=== PATIENT | female | born 1955 | race Caucasian/White ===

== ENCOUNTER → 2023-10-09 07:34 | Outpatient (REF) | payer MEDICARE, SELFPAY | LOC: MRI 3T 07:34 | PROVIDERS: ATTENDING PHYSICIAN Internal Medicine Geriatric Medicine | DX: E03.9 Hypothyroidism, unspecified (principal); M17.0 Bilateral primary osteoarthritis of knee; E06.3 Autoimmune thyroiditis; M47.812 Spondylosis without myelopathy or radiculopathy, cervical region; R06.02 Shortness of breath; G62.9 Polyneuropathy, unspecified | CPT/HCPCS: 70551 ==

== ENCOUNTER → 2023-10-11 06:43 | Outpatient (REF) | payer MEDICARE, SELFPAY ==
[2023-10-11] MEDS: LEXISCAN 0.400000000000000022 MG IV (08:29)
== END ==
LOC: RCS 06:43
PROVIDERS: ATTENDING PHYSICIAN Internal Medicine Geriatric Medicine
DX: R55 Syncope and collapse (principal); Z00.00 Encounter for general adult medical examination without abnormal findings; K21.9 Gastro-esophageal reflux disease without esophagitis; E78.2 Mixed hyperlipidemia; E03.9 Hypothyroidism, unspecified; M17.0 Bilateral primary osteoarthritis of knee; E06.3 Autoimmune thyroiditis; M47.812 Spondylosis without myelopathy or radiculopathy, cervical region; R06.02 Shortness of breath; S72.33 Oblique fracture of shaft of femur; G52.9 Cranial nerve disorder, unspecified; M81.0 Age-related osteoporosis without current pathological fracture; Z13.89 Encounter for screening for other disorder; H81.09 Meniere's disease, unspecified ear; R53.83 Other fatigue; M47.816 Spondylosis without myelopathy or radiculopathy, lumbar region; Z12.11 Encounter for screening for malignant neoplasm of colon
CPT/HCPCS: 78452; 93017; A9500; J2785

== ENCOUNTER → 2023-10-22 08:58 | Outpatient (REF) | payer MEDICARE, SELFPAY | LOC: RCS 08:58 | PROVIDERS: ATTENDING PHYSICIAN Internal Medicine Geriatric Medicine | DX: R55 Syncope and collapse (principal); R06.02 Shortness of breath; E78.2 Mixed hyperlipidemia; K21.9 Gastro-esophageal reflux disease without esophagitis; E03.9 Hypothyroidism, unspecified; M17.0 Bilateral primary osteoarthritis of knee; E06.3 Autoimmune thyroiditis; G62.9 Polyneuropathy, unspecified; H81.09 Meniere's disease, unspecified ear; R53.83 Other fatigue; R07.89 Other chest pain; Z87.898 Personal history of other specified conditions | CPT/HCPCS: 93225; 93226; 93306 ==

== ENCOUNTER → 2023-10-25 08:25 | Outpatient (REF) | payer MEDICARE, SELFPAY | LOC: HWRAD 08:25 | PROVIDERS: ATTENDING PHYSICIAN Internal Medicine Endocrinology, Diabetes & Metabolism; FAMILY PHYSICIAN Internal Medicine Geriatric Medicine | DX: E04.9 Nontoxic goiter, unspecified (principal) | CPT/HCPCS: 76536 ==

== ENCOUNTER 2023-11-29 07:57 | Day surgery (SDC) | payer MEDICARE, SELFPAY ==
[2023-11-29] VITALS (9 sets, daily range): BP systolic 128–142; BP diastolic 80–91; BMI 40.7
[2023-11-29] MEDS: LOW STRENGTH ASPIRIN 324 MG PO (08:53)
[2023-11-29] MEDS: NSS 1000 IV (09:02)
[2023-11-29 11:25] LABS: ACT-LR - POC 245 Seconds (116-155)
--- NOTE | 2023-11-29 11:42 | ITS.CL.CATH ---
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
Cardiac Catheterization
Procedure Report:
LEFT HEART CATHETERIZATION
Date of Procedure: November 29, 2023
Referring: Dr. Boom Rivas
PROCEDURES:
1. Left heart catheterization with coronary and single-plane left ventriculography
INDICATION: Unexplained sudden syncope with TID noted on stress testing with normal perfusion
ACCESS: Right radial artery, 5 [place] sheath right common femoral artery, 5 [place] sheath due to inability to pass catheters from the right subclavian to the aorta
HEMODYNAMICS : (mmHg)
AO (s/d) : 123/75, 89
LV (s/d) : 141/15
LVEDP : 25
CORONARY FINDINGS
DOMINANCE: Right
LEFT MAIN: Normal
LEFT ANTERIOR DESCENDING: The LAD arises normally from the left main and runs in the anterior interventricular groove. The LAD gives rise to a large bifurcating diagonal branch. The mid LAD beyond the first diagonal branch tapers to a small
caliber vessel and approaches but does not reach the apex terminating in a small distal diagonal branch. Both the LAD and diagonal appear widely patent.
CIRCUMFLEX: The circumflex is a medium caliber nondominant vessel supplying a single sizable bifurcating obtuse marginal branch. The circumflex and obtuse marginal branch are widely patent
RIGHT CORONARY ARTERY: The right coronary artery is a very large caliber dominant vessel that is widely patent. The PDA is large. The posterolateral branch is large.
VENTRICULOGRAPHY: Left ventriculography is performed in an VARELA projection. The digital single-plane left ventricular ejection fraction is estimated at 65%. No regional wall motion abnormalities are noted.
RADIATION SUMMARY: Fluoro Time (min): 7.0, Dose (mGy): 496.3, DAP (Gy.cm2) : 43.7
Closure Device: 6 [place] Angio-Seal, RFA and TR band on the right wrist
CONCLUSIONS
1. Normal coronary arteries
2. Preserved left ventricular systolic function
RECOMMENDATIONS
1. Medical therapy and risk modification
Copy to: Dr. Boom Rivas
[2023-11-29] MEDS: TYLENOL 650 MG PO (13:11)
== END 2023-11-29 15:00 | disposition home or self-care (01) ==
LOC: CATH 07:57
PROVIDERS: ATTENDING PHYSICIAN Internal Medicine Interventional Cardiology; FAMILY PHYSICIAN Internal Medicine Geriatric Medicine
DX: R07.9 Chest pain, unspecified (principal); R55 Syncope and collapse; E06.3 Autoimmune thyroiditis; E66.01 Morbid (severe) obesity due to excess calories; G47.33 Obstructive sleep apnea (adult) (pediatric); K21.9 Gastro-esophageal reflux disease without esophagitis
CPT/HCPCS: 93458; Q9967

== ENCOUNTER → 2024-01-21 09:41 | Outpatient (REF) | payer MEDICARE, SELFPAY | LOC: WDC 09:41 | PROVIDERS: ATTENDING PHYSICIAN Internal Medicine Geriatric Medicine | DX: Z12.31 Encounter for screening mammogram for malignant neoplasm of breast (principal) | CPT/HCPCS: 77063; 77067 ==

== ENCOUNTER → 2024-02-13 08:19 | Outpatient (REF) | payer MEDICARE, SELFPAY | LOC: RAD 08:19 | PROVIDERS: ATTENDING PHYSICIAN Internal Medicine Rheumatology; FAMILY PHYSICIAN Internal Medicine Geriatric Medicine | DX: M81.0 Age-related osteoporosis without current pathological fracture (principal) | CPT/HCPCS: 77080 ==

== ENCOUNTER → 2025-01-25 09:13 | Outpatient (REF) | payer MEDICARE, SELFPAY | LOC: HWRAD 09:13 | PROVIDERS: ATTENDING PHYSICIAN Internal Medicine Gastroenterology; FAMILY PHYSICIAN Internal Medicine Geriatric Medicine | DX: R10.9 Unspecified abdominal pain (principal) | CPT/HCPCS: 76700 ==

== ENCOUNTER → 2025-02-01 08:05 | Outpatient (REF) | payer MEDICARE, SELFPAY | LOC: WDC 08:05 | PROVIDERS: ATTENDING PHYSICIAN Internal Medicine Geriatric Medicine | DX: Z12.39 Encounter for other screening for malignant neoplasm of breast (principal); Z12.31 Encounter for screening mammogram for malignant neoplasm of breast | CPT/HCPCS: 77063; 77067 ==

== ENCOUNTER 2025-02-04 06:15 | Day surgery (SDC) | payer MEDICARE, SELFPAY | END 2025-02-04 10:37 | disposition home or self-care (01) | LOC: GI 06:15 | PROVIDERS: ATTENDING PHYSICIAN Internal Medicine Gastroenterology | DX: Z12.11 Encounter for screening for malignant neoplasm of colon (principal); K57.30 Diverticulosis of large intestine without perforation or abscess without bleeding; K64.8 Other hemorrhoids; K62.89 Other specified diseases of anus and rectum; K44.9 Diaphragmatic hernia without obstruction or gangrene; K29.70 Gastritis, unspecified, without bleeding; K90.0 Celiac disease; D12.5 Benign neoplasm of sigmoid colon; D12.0 Benign neoplasm of cecum; D12.4 Benign neoplasm of descending colon; K63.5 Polyp of colon; K29.50 Unspecified chronic gastritis without bleeding; K31.89 Other diseases of stomach and duodenum; Z80.0 Family history of malignant neoplasm of digestive organs | CPT/HCPCS: 45385; 43239; 88305; 88342 ==